=== PATIENT | female | born 1990 | race Caucasian/White ===

== ENCOUNTER 2023-06-09 19:34 | Emergency (ER) | payer MEDICAID ==
[~2023-06-09] VITALS: Ht 165.1 cm; Wt 75.3 kg
[2023-06-09 19:58] VITALS: BP 115/75; PULSE 83; RESP 17; TEMP 97.6; O2SAT 99
[2023-06-09 22:45] VITALS: O2SAT 99
[2023-06-09] MEDS ORDERED: NAPR-54 PO (22:45)
== END 2023-06-09 22:50 | disposition home or self-care (01) ==
LOC: MED 19:34
DX: S43.401A Unspecified sprain of right shoulder joint, initial encounter (principal); E20.9 Hypoparathyroidism, unspecified; Z79.1 Long term (current) use of non-steroidal anti-inflammatories (NSAID); Z88.1 Allergy status to other antibiotic agents; V89.2XXA Person injured in unspecified motor-vehicle accident, traffic, initial encounter; Y93.89 Activity, other specified; Y92.410 Unspecified street and highway as the place of occurrence of the external cause; Y99.8 Other external cause status
CPT/HCPCS: 73030; 81025; 99283